=== PATIENT | male | born 1940 | race Two or more races ===

== ENCOUNTER 2024-08-17 08:12 | Emergency (ER) | payer MEDICARE, SELFPAY ==
[2024-08-17] VITALS (8 sets, daily range): BP systolic 144–167; BP diastolic 79–106; BMI 29.8
[2024-08-17 08:23] LABS: Glucose - Point of Care 154 mg/dl (70-99)
--- NOTE | 2024-08-17 08:31 | ED.GENMED ---
History of Present Illness
General
Chief Complaint: Abdominal Symptoms
Source: patient
Time Seen by Provider: 08/17/24 08:15
History of Present Illness
History of Present Illness:
83-year-old male with past medical history of hyperlipidemia, [id number]-ulpjipsds diabetes, anxiety and depression presenting to the ER from his independent living facility [facility] for evaluation of multiple concerns including
headache, nausea, shakiness, abdominal pain, fatigue and generally feeling unwell. Patient was reportedly at [place] emergency department twice since Wednesday with no specific etiologies found, back to the ER here today for the same. Patient
noting to me none of his symptoms seem to be any different today. There was no reported fevers, vomiting, bowel changes, urinary symptoms, shortness of breath, coughing, known sick contacts or recent antibiotics. Patient is unsure as to what
exactly was done at [place]'s noted that he was not happy with his care there.
Past History
Past History
ED Past Medical History: Hypercholesterolemia, NIDDM and Psychiatric
ED Past Surgical History: Cholecystectomy
Social History
Tobacco: Non-smoker
Alcohol: None
Drug: None
Personal:
Living: assisted living
Review of Systems
Review of Systems
All Other Systems: ROS reviewed and negative except as documented in HPI and ROS
Phy Exam
Physical Exam
Physical Exam:
GENERAL: Alert , in no apparent distress, tremulous
EYE: clear conjunctiva b/l
HEAD: NCAT
ENT: o/p clr, dry mucous membranes.
CARDIAC: Regular rate and rhythm .
LUNGS: Clear breath sounds bilaterally, no acute respiratory distress, no wheezes/rales/rhonchi
ABDOMEN: Soft, without focal tenderness, no r/g, no cvat
NEUROLOGICAL: Alert and oriented to self and place but not the year
SKIN: Warm and dry, skin intact.
MUSCULOSKELETAL: No edema, well perfused.
PSYCH: Normal and appropriate interaction.
Scores
Heart Failure Risk
Heart Failure Risk Score: Not Applicable
Heart Score for Chest Pain Patients
STEMI patient?: Not applicable
Withdrawal Assessment of Alcohol
Withdrawal Assessment Completed?: Not applicable
Course
Orders/Labs/Results
Orders:
Orders
08/17/24 08:23
Electrocardiogram (*1) Urgent
Reason for Study: Abdominal Pain
EKG- Treatment ONCE
08/17/24 08:24
Straight cath- Treatment ONCE
08/17/24 08:45
Basic Metabolic Panel Urgent
Complete Blood Count/With Diff Urgent
TSH Urgent
Urinalysis Reflex To Culture Urgent
Date Specimen was Collected: 08/17/24
Time Specimen was Collected: 08:40
Urine Microscopic Reflex Cult Urgent
08/17/24 09:49
Acetaminophen [Tylenol] 1,000 mg PO NOW STA
08/17/24 10:18
0.9% Sodium Chloride 1000 ml [Nss] 1,000 ml IV BOLUS
08/17/24 10:22
0.9% Sodium Chloride 1000 ml [Nss] 1,000 ml IV BOLUS
08/17/24 11:52
Diphenhydramine [Benadryl] 25 mg IV NOW STA
Abnormal Lab Results
08/17/24 08/17/24
08:22 08:45
MPV 10.8 H fL
(7.4-10.4)
Abs Immat Gran (auto) 0.1 H 10^3/uL
(0-0.05)
Absolute Neuts (auto) 6.9 H 10^3/uL
(1.4-6.5)
Absolute Lymphs (auto) 1.1 L 10^3/uL
(1.2-3.4)
Immature Gran % 0.6 H %
(0-0.5)
Neutrophils % 78.5 H %
(42.2-75.2)
Lymphocytes % 12.2 L %
(20.5-51.1)
Chloride 110 H mmol/L
(98-107)
Carbon Dioxide 20 L mmol/L
(22-30)
BUN 28 H mg/dl
(9-20)
Creatinine 1.4 H mg/dL
(0.7-1.3)
Glucose 131 H mg/dl
(70-99)
Urine Ketones 3+ A
(Negative)
Urine Glucose 4+ A
(Negative)
Urine Albumin (Reflex) 2+ A
(Neg - Trace)
POC Glucose 154 H mg/dl
(70-99)
08/17/24 08:45
08/17/24 08:45
Vital Signs
Initial and Last Documented VS:
Initial Vital Signs
BP
161/79
08/17/24 08:15
Last Documented Vital Signs
Temp Pulse Resp BP Pulse Ox
98.1 F 103 22 144/102 98
08/17/24 12:03 08/17/24 10:09 08/17/24 10:09 08/17/24 10:09 08/17/24 09:15
MDM/Problems Addressed
Differential Diagnosis Includes:
- UTI
- Electrolyte Imbalance
- Parkinson's Disease/Dementia/Mild Cognitive Impairment
- CVA
- Viral syndrome
- Thyroid disorder
- Chronic Pain Syndrome
MDM/Problems Addressed:
83-year-old male presenting to the ER for a multitude of concerns, seemingly nonspecific. Reportedly in the ER twice at a separate facility earlier this week with no reported etiologies found. Patient presenting back to the ER today for further
evaluation. I contacted the staff at [facility], they state patient does seem to be a little bit confused today as he normally is able to take his medications, they were not sure as to what exactly was done at [place]. Patient
also unable to further elaborate as to what was done at [place]. Will attempt to obtain records from their see what labs/imaging were done. At this time patient is hemodynamically stable. Unclear etiology for presenting symptoms. Disposition
pending
*Pulse Oximetry
SaO2: 98
Oxygen Mode of Delivery: Room air
Patient hypoxic: no
*Community Chest Officer Interpretation
Rate: normal
Heart Rate: 86
Rhythm: sinus
*Critical Care Note
Total Time (30-74mins, 75-104mins- exclusive of procedures): Not Applicable
Data Reviewed
Review of Other/Old Records Reveals: Labs, Records, Radiology Studies and Discharge Summary
Comment
Comment:
Patient seen at [place] emergency department twice, admitted to the hospital from August 13 to August 14. He had a negative CT of the head, seen by neurology and psychiatry and did not have any further recommendations so had been discharged back to
his assisted living. It is documented that neurology thought tremors were likely physiological and psychiatry did not feel symptoms were related to extraparametal symptoms. Patient had a CT of the abdomen and pelvis with contrast study which did
not show any intra-abdominal pathologies, no obstructive uropathy. There was a 3 mm calculi seen within the left lower pole of the kidney that was unchanged from previous.
Patient Management
Discussion with other providers: PCP
Escalation/DeEscalation of care consider admission/obs:
Patient's workup here does show mild prerenal azotemia. This was treated with 1 L normal saline. Overall unclear etiology for patient's symptoms/intermittent tremors however at this time I do not suspect an emergent pathology. I contacted
patient's primary care provider to discuss patient's frequent ER visits as well as today's findings. They are okay with following up with the patient on an outpatient basis which I do think is reasonable given patient has already had multiple
imaging studies, labs and admission with no etiology is found. I do suspect possible medication side effect as potential cause for symptoms and this may need to be revisited by the primary care provider who prescribes patient this medication. Will
trial a dose of Benadryl here prior to discharge, I did consider Cogentin as another medication for possible extrapyramidal syndromes. I attempted to recontact patient's assisted living facility to discuss these results, left a voice message for
them to contact us back. Patient is otherwise stable for discharge back to his assisted living.
I was also able to speak with patient's director at the assisted living and discussed all of these results with them. Patient did have improvement of his tremors with Benadryl and I did advise that he could take this as needed for further tremors
as needed at home. The director of the assisted living will ensure patient has close follow-up with his primary care doctor in the coming week. Patient is otherwise stable for transport back to his assisted living.
ED Attending Note
-
Portions of this chart may have been created with voice recognition software.� Occasional wrong word or��sound alike� substitutions may have occurred due to the inherent limitations of voice recognition software.
Discharge Plan
Departure
Patient Disposition: Assisted Living
Date of Disposition: 08/17/24
Time of Disposition: 11:35
Discharge Problem:
Acute kidney injury, Tremor of unknown origin
Instructions: Dehydration, Adult (DC)
Referrals:
Dorian Quinonez DO [Family Provider, Family Practice]
Interventions
Interventions:
*Risk Screen - Suicide Last Done: 08/17/24 08:18
*General Assessment Last Done: 08/17/24 08:18
*Neglect/Abuse Screening Last Done: 08/17/24 08:18
*ED COVID-19 Vaccine History Last Done: 08/17/24 08:18
AY-Bfktqk-Bjfdngnzsk Assessment Last Done: 08/17/24 08:30
Discharge Date and Time
Print Language: SWAZI
[2024-08-17 08:59] LABS: % Basophils 0.6 % (0-2); % Eosinophils 0.8 % (0-6); % Immature Granulocytes 0.6 % (0-0.5); % Lymphocytes 12.2 % (20.5-51.1); % Monocytes 7.3 % (1.7-9.3); % Neutrophils 78.5 % (42.2-75.2); Absolute Basophils 0.1 10^3/uL (0-0.2); Absolute Eosinophils 0.1 10^3/uL (0-0.7); Absolute Immature Granulocytes 0.1 10^3/uL (0-0.05); Absolute Lymphocytes 1.1 10^3/uL (1.2-3.4); Absolute Monocytes 0.6 10^3/uL (0.1-0.6); Absolute Neutrophils 6.9 10^3/uL (1.4-6.5); Hematocrit 45.9 % (39.0-52.0); Hemoglobin 16.1 g/dL (13.0-18.0); Mean Corp Hgb Conc. 35.1 g/dL (33.0-37.0); Mean Corpuscular Hgb 29.5 pg (27.0-31.0); Mean Corpuscular Volume 84.2 fL (80.0-94.0); Mean Platelet Volume 10.8 fL (7.4-10.4); Nucleated Red Blood Cells % 0 % (-); Platelet Count 148 10^3/uL (130-400); Red Blood Cell Count 5.45 10^6/uL (4.70-6.10); Red Cell Dist. Width 13.1 % (11.5-14.5); White Blood Cell Count 8.8 10^3/uL (4.8-10.8)
[2024-08-17 09:08] LABS: Urine Albumin 2+ (Neg - Trace); Urine Bilirubin Negative (Negative); Urine Character Clear (Clear); Urine Color Yellow; Urine Glucose 4+ (Negative); Urine Ketone 3+ (Negative); Urine Leukocyte Negative (Negative); Urine Nitrite Negative (Negative); Urine Occult Blood Negative (Negative); Urine Specific Gravity 1.025 (<1.030); Urine Urobilinogen Negative (Neg - 1+)
[2024-08-17] MEDS: TYLENOL 1000 MG PO (10:08)
[2024-08-17 10:09] LABS: Urine Urothelial Cell 0-2 /LPF (FEW)
[2024-08-17 10:10] LABS: Urine Amorphous Seen; Urine Red Blood Cell 0-2 /HPF (0-2); Urine White Cell 0-2 /HPF (0-5)
[2024-08-17 10:13] LABS: Blood Urea Nitrogen 28 mg/dl (9-20); Calcium 9.8 mg/dl (8.4-10.2); Carbon Dioxide 20 mmol/L (22-30); Chloride 110 mmol/L (98-107); Estimated Creatinine Clearance 42 ml/min; Glucose 131 mg/dl (70-99); Sodium 142 mmol/L (135-145); eGFR 50.49
[2024-08-17 10:36] LABS: TSH 1.89 uIU/ml (0.47-4.68)
[2024-08-17] MEDS: NSS 1000 IV (10:52)
[2024-08-17] MEDS: BENADRYL 25 MG IV (11:58)
--- NOTE | 2024-08-17 13:40 | EDRN ---
Attempted to call report to [facility]. No answer. Report given to [facility].
== END 2024-08-17 13:40 ==
LOC: EMR 08:12
PROVIDERS: Physician Assistant Medical; EMERGENCY PHYSICIAN Student in an Organized Health Care Education/Training Program; FAMILY PHYSICIAN Family Medicine
DX: N17.9 Acute kidney failure, unspecified (principal); R25.1 Tremor, unspecified; E78.00 Pure hypercholesterolemia, unspecified; E11.9 Type 2 diabetes mellitus without complications
CPT/HCPCS: 99283; 96374; 96361; 80048; 81003; 81015; 82962; 84443; 85025; 93005